=== PATIENT | female | born 1965 | race Caucasian/White ===

== ENCOUNTER 2023-10-04 01:44 | Day surgery (SDC) | payer OTHER, SELFPAY ==
[2023-09-24 10:06] VITALS: BMI 20.1
--- NOTE | 2023-10-01 09:52 | SUR.PREOP ---
Patient called regarding upcoming procedure. Reviewed preop instructions, appointment times, and procedure prep.
[2023-10-04 08:18] VITALS: BP 112/59; PULSE 68; RESP 16; TEMP 36.1; O2SAT 100
[2023-10-04] MEDS: LACTATED RINGERS 1,000 ML 150 ML IV CONT (08:26)
--- NOTE | 2023-10-04 09:05 | PM.HPGS ---
History of Present Illness History of Present Illness Consent: Risks, benefits, and alternatives have been discussed and questions answered. Patient agrees to proceed with procedure. Chief complaint: neoplasm screening Narrative: Manjula Small is a 58 year old female here for screening colonoscopy, last one 10 years ago Review of Systems Review of Systems: All systems reviewed & are unremarkable except as noted in HPI and below PMFSH Past Medical History Medical History (Updated 07/15/23 @ 13:49 by Manasa Bradley APRN) Anxiety History of vaginal delivery x2 Insomnia Osteopenia Surgical History Surgical History (Updated 07/15/23 @ 13:28 by Kimberly Wilder CMA) H/O LEEP History of dilation and curettage History of placement of ear tubes Status post surgical removal of neoplasm of skin Family History Family History Father Family history of pancreatic cancer Family history of gout Mother Family history of malignant neoplasm of breast in first degree relative Family history of osteoporosis Family history of Alzheimer's disease Grandparent Family history of Alzheimer's disease Social History Social History Smoking status: Never smoker Second hand tobacco smoke exposure: No Alcohol intake: never Substance use: current Other substance usage details: gummies at HS Lack of Transportation: No Lack of Food: Never True Current Housing: I Have Housing Concerned About Future Housing: No Difficulty Paying Gas/Electric Bills: No Difficulty Paying for Meds: No Currently Unemployed: No Education: Master's Degree or Higher Difficulty w/ Childcare or Family Care: No Living arrangements: with family Occupation/Education: occupation 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 (if verbalized by the patient): Female Spiritual care concerns: No Agree to blood products: Yes Meds Home Medications and Allergies Home Medications Medication Instructions Recorded Confirmed Type cholecalciferol (vitamin D3) 100 4,000 unit PO DAILY 07/13/19 09/24/23 History mcg (4,000 unit) capsule calcium carbonate 600 mg calcium 600 mg PO DAILY 07/18/20 09/24/23 History (1,500 mg) tablet (Calcium) vitamin B complex (B 1 tablet PO DAILY 01/14/21 03/22/24 History Complex-Vitamin B12 tablet) buspirone 5 mg tablet See Rx Instructions PO QHS PRN 11/12/22 09/24/23 Rx anxiety or sleep #60 tabs zolpidem 5 mg tablet (Ambien) 5 mg PO QHS PRN sleep #30 tabs 02/18/23 09/24/23 Rx Allergies Allergy/AdvReac Type Severity Reaction Status Date / Time shellfish derived Allergy Unknown Unknown Verified 10/04/23 08:17 Vital Signs Vital Signs - 24 hr 10/04/23 08:18 Temperature 96.9 F L Pulse Rate 68 Respiratory Rate 16 Blood Pressure 112/59 L Pulse Oximetry 100 Oxygen Delivery Room Air Exam Const: General: comfortable and no acute distress HENMT: Face/Nose/Sinus: Normal nares present Eyes: General: appearance normal, both eyes and all related structures Neck: Neck: no JVD Resp: Auscultation: clear to auscultation bilaterally Cardio: Rate: regular rate Rhythm: regular rhythm GI: Inspection: non-distended GI Palp: Yes Soft to palpation Skin: General skin exam: normal color Neuro: General: gait normal Speech: normal speech Extrem: General: normal to inspection Psych: Mental Status: mental status grossly normal Assessment and Plan Assessment and plan (1) Colon cancer screening: Code(s): Z12.11 - Encounter for screening for malignant neoplasm of colon Status: Acute Assessment and Plan: colonoscopy
[2023-10-04 09:25] VITALS: BP 89/53; PULSE 72; RESP 15; O2SAT 100
--- NOTE | 2023-10-04 09:27 | WPDANESEPPF ---
Anes - Initial Pre Proc Eval Procedure: Operation Date: 10/04/23 09:30 Proposed Procedures p Screening Colonoscopy - Jared Rodriguez MD Date/Time: 10/04/23 09:27 Surgeon: Jared Rodriguez MD Pre Op Diagnosis: neoplasm screening Patient Data Age: 58 Gender: F Height: 1.65 m Weight: 52 kg Last Vital Signs Temp 96.9 F L 10/04/23 08:18 Pulse 68 10/04/23 08:18 Resp 16 10/04/23 08:18 BP 112/59 L 10/04/23 08:18 Pulse Ox 100 10/04/23 08:18 O2 Del Method Room Air 10/04/23 08:18 Allergies Allergy/AdvReac Type Severity Reaction Status Date / Time shellfish derived Allergy Unknown Unknown Verified 10/04/23 08:17 Home Medications Medication Instructions Recorded Confirmed Type cholecalciferol (vitamin D3) 100 4,000 unit PO DAILY 07/13/19 09/24/23 History mcg (4,000 unit) capsule calcium carbonate 600 mg calcium 600 mg PO DAILY 07/18/20 09/24/23 History (1,500 mg) tablet (Calcium) vitamin B complex (B 1 tablet PO DAILY 07/18/20 09/24/23 History Complex-Vitamin B12 tablet) buspirone 5 mg tablet See Rx Instructions PO QHS PRN 11/12/22 09/24/23 Rx anxiety or sleep #60 tabs zolpidem 5 mg tablet (Ambien) 5 mg PO QHS PRN sleep #30 tabs 02/18/23 09/24/23 Rx Patient hx anesthesia problems: none Family hx anesthesia problems: none Results Review: All pre-operative results and documents have been reviewed as part of the pre-operative evaluation. [facility] Past Medical History Medical History (Updated 07/15/23 @ 13:49 by Manasa Bradley APRN) Anxiety History of vaginal delivery x2 Insomnia Osteopenia Surgical History Surgical History (Updated 07/15/23 @ 13:28 by Kimberly Wilder CMA) H/O LEEP History of dilation and curettage History of placement of ear tubes Status post surgical removal of neoplasm of skin Family History Family History Father Family history of pancreatic cancer Family history of gout Mother Family history of malignant neoplasm of breast in first degree relative Family history of osteoporosis Family history of Alzheimer's disease Grandparent Family history of Alzheimer's disease Social History Social History Smoking status: Never smoker Second hand tobacco smoke exposure: No Alcohol intake: never Substance use: current Other substance usage details: gummies at HS Lack of Transportation: No Lack of Food: Never True Current Housing: I Have Housing Concerned About Future Housing: No Difficulty Paying Gas/Electric Bills: No Difficulty Paying for Meds: No Currently Unemployed: No Education: Master's Degree or Higher Difficulty w/ Childcare or Family Care: No Living arrangements: with family Occupation/Education: occupation 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 Informed Consent: The patient's anesthetic plan and its attendant risks and benefits were discussed with the patient/family/POA. Questions were solicited and answers provided to the satisfaction of the patient/family/POA.
[2023-10-04 09:35] VITALS: BP 98/56; PULSE 64; RESP 18; O2SAT 100
[2023-10-04 09:45] VITALS: BP 108/59; PULSE 62; RESP 23; O2SAT 100
== END 2023-10-04 09:49 | disposition home or self-care (01) ==
PROVIDERS: PCP Nurse Practitioner Family; Visit Provider Internal Medicine Gastroenterology
PROC: 0DJD8ZZ Inspection of Lower Intestinal Tract, Via Natural or Artificial Opening Endoscopic (ICD-10-PCS; CPT 45378; principal; 2023-10-04 09:30)
DX: Z12.11 Encounter for screening for malignant neoplasm of colon (principal); K64.8 Other hemorrhoids; F41.9 Anxiety disorder, unspecified; G47.00 Insomnia, unspecified; M85.88 Other specified disorders of bone density and structure, other site; Z98.890 Other specified postprocedural states; Z85.828 Personal history of other malignant neoplasm of skin; Z80.0 Family history of malignant neoplasm of digestive organs; Z80.3 Family history of malignant neoplasm of breast
CPT/HCPCS: 45378; J2001; J2371; J2704; J7120

== ENCOUNTER 2024-10-17 08:21 | Outpatient (CLI) | payer OTHER, SELFPAY ==
--- NOTE | ~2024-10-17 | CT_ITS ---
CT of the Abdomen and Pelvis: Indication: Abdominal pain Technique: 2.5 mm axial scans were obtained through the abdomen and pelvis following intravenous adm inistration of 100 cc of Omnipaque 350. Dose reduction technique was used on this scan by utilizing a utomated exposure control and iterative reconstruction technique. The dose-length product (DLP) was 1 98.98 mGy-cm. Findings: Scans through the lung bases are unremarkable. Small scattered hepatic cysts are present. The spleen, pancreas, gallbladder, adrenals and kidneys ar e within normal limits. No evidence of aortic aneurysm. No lymphadenopathy. No bowel obstruction or bowel wall thickening. There is no evidence to suggest acute appendicitis. Images through the pelvis were performed. Urinary bladder unremarkable. No pelvic mass seen. No ascit es. Impression: No significant abnormalities seen. Reviewed, dictated and finalized at [facility]. Impression: No significant abnormalities seen.
--- OUTSIDE RECORDS SUMMARY | 2024-10-17 08:34 | XMS_ITS | Referral Summary ---
Author Organization [facility] Address [address] [place] [address] Care Team Providers Care Multiple Drum Sander Name Role Phone BrissaYolyMily NP Primary Care Provider [phone] Allergies Active Allergy Reactions Criticality Noted Date Comments Shellfish Containing Products Unknown 2010 Medications zolpidem (AMBIEN) 5 mg tablet 10/09/2019 Active UNABLE TO FIND Take by mouth as needed THC sleeping caps 10 mg Active ibuprofen (ibuprofen) 200 mg tab/cap Take by mouth every 6 (six) hours as needed for pain Active acetaminophen (TYLENOL) 325 mg tablet Take 650 mg by mouth every 6 (six) hours as needed for pain Active cyanocobalamin (Vitamin B-12) 100 mcg tabletIndicatio ns:Prevention of Vitamin B12 Deficiency Take 1,000 mcg by mouth daily Active cholecalciferol (VITAMIN D-3) 5,000 unit capsule Take 5,000 Units by mouth daily Active calcium carbonate (OS-DOMINIQUE) 650 mg calcium (1,625 mg) tablet Take 1 tablet by mouth daily Active Active Problems No known active problems Social History Tobacco Use Types Packs/Day Years Used Date Smoking Tobacco: Never Smokeless Tobacco: Never Alcohol Use Standard Drinks/Week Comments Not Currently 0 (1 standard drink = 0.6 oz pur e alcohol) Comments Unknown Sex and Gender Information Value Date Recorded Sex Assigned at Not on file 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 Gender Identity Not on file Sexual Orientation Straight 12/16/2019 11 :32 AM CDT Last Filed Vital Signs Vital Sign Reading Time Taken Comments Blood Pressure 153/75 04/30/2021 11:20 AM CDT Pulse 80 04/30/2021 11:20 AM CDT Temperature 36.6 C (97.9 F) 04/25/2020 10:38 AM CDT Respiratory Rate - - Oxygen Saturation 98% 12/06/2019 12:59 PM CDT Inhaled Oxygen Concentration - - Weight 55 kg (121 lb 3.2 oz) 04/30/2021 11:20 AM CDT Height 165.1 cm (5' 5 ) 04/30/2021 11:20 AM CDT Body Mass Index 20.17 04/30/2021 11:20 AM CDT Plan of Treatment Not on file Procedures Procedure Name Priority Date/Time Associated Diagnosis Comments SCREENING MAMMOGRAM BILATERAL W ANATOLY Schedule Routine, Read Routine (OP Routine) 11/10/2023 11:06 AM CDT Screening mammogram, encounter for from Last 3 Months or Most Recently Relevant to Health Maintenance Results * Screening Mammogram Bilateral W Anatoly (11/10/2023 11:06 AM CDT) Anatomical Region Laterality Modality Breast Bilateral Mammography Narrative 11/11/2023 1:51 PM CDT Mammogram Technique: Bilateral Digital Breast Tomosynthesis, Bilateral C-view 2D Screening mammogram. Views obtained: bilateral craniocaudal and bilateral mediolateral oblique. Computer Aided Detection was performed. Mammogram Findings: The present examination has been compared to prior imaging studies performed at [facility] on 09/30/2020, 10/09/2021 and 11/03/2022. The breasts are extremely dense, which lowers the sensitivity of mammography. There is no suspicious abnormality in either breast. Impression: There is no mammographic evidence of malignancy. Annual screening mammography is recommended. Consider breast MRI for supplemental screening given the patient's extremely dense breast tissue. OVERALL FINAL ASSESSMENT: BI-RADS CATEGORY 1: Negative. Procedure Note Fani Malhotra MD - 11/11/2023 Mammogram Technique: Bilateral Digital Breast Tomosynthesis, Bilateral C-view 2D Screening mammogram. Views obtained: bilateral craniocaudal and bilateral mediolateral oblique. Computer Aided Detection was performed. Mammogram Findings: The present examination has been compared to prior imaging studies performed at [facility] on 09/30/2020, 10/09/2021 and 11/03/2022. The breasts are extremely dense, which lowers the sensitivity of mammography. There is no suspicious abnormality in either breast. Impression: There is no mammographic evidence of malignancy. Annual screening mammography is recommended. Consider breast MRI for supplemental screening given the patient's extremely dense breasttissue. OVERALL FINAL ASSESSMENT: BI-RADS CATEGORY 1: Negative. us Self Screening Mammogram IMG MAMMO PROCEDURES Fi nal Result from Last 3 Months or Most Recently Relevant to Health Maintenance [facility] HEALTHLINK OPEN ACCESS [facility] [id number] Member Subscriber Plan / Payer (Ef fective 2021-Present) Name:Manjula Cortes Member ID:[id number] Relation to Subscriber:Self Name:Manjula Cortes Subscriber ID:[id number] Payer ID:[id number] Group ID:[id number] Type:HEALTHLINK HMO/PPO Address: [address] [place] [id number] Care Teams Multiple Drum Sander Relationship Specialty Start Date End Date Yoly Brumfield NP PCP - General 10/09/21
--- OUTSIDE RECORDS SUMMARY | 2024-10-17 08:34 | XMS_ITS | Clinical Summary ---
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
--- OUTSIDE RECORDS SUMMARY | 2024-10-17 08:34 | XMS_ITS | Clinical Summary ---
Author Organization [facility] Address [address] [place] [address] Care Team Providers Care Physicians Assistant Name Role Phone Brissa Mily NP Primary Care Provider [phone] Allergies Active Allergy Reactions Criticality Noted Date [...] Active Active Problems No known active problems Surgical History Surgery Date Site/Laterality Comments BREAST BIOPSY 08/23/2019 Left TYMPANOSTOMY TUBE PLACEMENT Medical History Medical History Date Comments Hx Other Medical 1996 Leap procedure Hx Other Medical ear tube surger y Personal history of other ma lignant neoplasm of skin History of nonmelanoma skin cancer - (Added by TW Conv) Family History Medical History Relation Name Comments Cancer Other Gout Other Relation Name Status Comments Other Social History Tobacco Use Types Packs/Day Years Used Date Smoking Tobacco: Never Smokeless Tobacco: Never Alcohol Use Standard Drinks/Week Comments Not Currently 0 (1 standard drink = 0.6 oz pur e alcohol) Comments Unknown Sex and Gender Information Value Date Recorded Sex Assigned at Not on file 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 Gender Identity Not on file Sexual Orientation Straight 12/16/2019 11 :32 AM CDT Obstetrics History Last Filed Vital Signs Vital Sign Reading [...] 04/30/2021 11:20 AM CDT Plan of Treatment Health Maintenance Due Date Last Done Comments Cervical Cancer Screening 1963 Colon Cancer Screening-Colonoscopy 1963 Depression Screening 1963 Hepatitis C Screening 1963 DTaP/Tdap/Td Vaccine (1 - Tdap) 1974 Hepatitis B Screening 1981 Regular Well Visit/Exam 18-64 1981 Zoster Vaccine (2 of 2) 05/28/2018 04/02/2018 Influenza Vaccine (#1) 2024 04/04/2018 Breast Cancer Screening-Mammogram 11/09/2024 11/10/2023, 11/03/2022, 10/09/2021, Additional history exists Pneumococcal vaccine <65 Aged Out No longer eligible based on patient's age to complete this topic Procedures Procedure Name Priority Date/Time Associated Diagnosis [...] compared to prior imaging studies performed at [facility] on 09/30/2020, 10/09/2021 and 11/03/2022. The breasts [...] compared to prior imaging studies performed at [facility] on 09/30/2020, 10/09/2021 and 11/03/2022. The breasts [...] Most Recently Relevant to Health Maintenance Insurance [employer] [facility] HEALTHLINK OPEN ACCESS [facility] [id number] Care Teams Physicians Assistant Relationship Specialty Start Date End Date Yoly Brumfield NP PCP - General 10/09/21
--- OUTSIDE RECORDS SUMMARY | 2024-10-17 08:34 | XMS_ITS | Encounter Summary ---
Author Organization [facility] Address [address] [place] [address] Care Team Providers Care Lieutenant Ballistics Name Role Phone Unavailable Primary Care Provider Unavailabl e Encounter Details Date Type Department Care Team (Late st Contact Info) Description 12/06/2001 Outpatient Historical Division of Neurology 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
--- OUTSIDE RECORDS SUMMARY | 2024-10-17 08:34 | XMS_ITS | Clinical Summary ---
Author Organization [facility] Address [address] [place] [address] Care Team Providers Care Editor Newspaper Name Role Phone Yoly Brumfield APRN-BLANCA Primary Care Provider Dayton Draper MD Unavailable [phone] Source Comments [facility],non-owned Affiliates and Associated Physician Practices is amultiple site organization consisting of ambulatory clinics and hospital sitesin [place], [place], [place] and [place]. This disclosure is being madepursuant to the Care Everywhere program and may not contain all information available regarding this patient. Last updated 18.[facility] [employer] Allergies No known active allergies Social History Tobacco Use Types Packs/Day Years Used Date Smoking Tobacco: Never Assessed Comments Unknown Sex and Gender Information Value Date Recorded Sex Assigned at Not on file Legal Sex Female 1:38 PM CDT Gender Identity Not on file Sexual Orientation Not on file Last Filed Vital Signs Vital Sign Reading Time Taken Comments Blood Pressure - - Pulse - - Temperature - - Respiratory Rate - - Oxygen Saturation - - Inhaled Oxygen Concentration - - Weight 54.4 kg (120 lb) 12/15/2021 10:40 AM CDT Height 165.1 cm (5' 5 ) 12/15/2021 10:40 AM CDT Body Mass Index 19.97 12/15/2021 10:40 AM CDT Plan of Treatment Health Maintenance Due Date Last Done Comments COLOGUARD (AGES 45-75) - COL ON CA SCREENING 1963 COLON MONITORING 1963 COLONOSCOPY - COLON CA SCREENING 1963 CT COLONOGRAPHY - COLON CA SCREENING 1963 Colorectal Cancer Screening 1963 FIT - COLON CA SCREENING 1963 FLEX SIG - COLON CA SCREENING 1963 LIPID TESTING 1963 PAP SMEAR 1963 HIV SCREENING 1978 HEPATITIS C SCREENING 04/04/1981 DTAP/TDAP/TD VACCINES (1 - Tdap) 1982 PNEUMOCOCCAL VACCINE 50+ (1 of 1 - PCV) 2013 ZOSTER VACCINE (1 of 2) 2013 MAMMOGRAM 10/10/2023 10/09/2021 COVID-19 VACCINE (1 - 2023-2 5 season) 2024 DEPRESSION SCREENING 07/05/2024 INFLUENZA VACCINE (Season Ended) 2025 Respiratory Syncytial Virus (RSV) Vaccine Pt: or over 60 yrs (1 - 1-dose 75+ series) 2038 HEPATITIS B VACCINE Aged Out No longe r eligible based on patient's age to complete this topic HIB VACCINE Aged Out No longer eligi ble based on patient's age to complete this topic HPV VACCINE Aged Out No longer eligi ble based on patient's age to complete this topic MENINGOCOCCAL (Group B) VACC INE SHARED DECISION-MAKING Aged Out No longer eligibl e based on patient's age to complete this topic MENINGOCOCCAL GROUPS A/C/Y/W VACCINE Aged Out No longer eligible b ased on patient's age to complete this topic PNEUMOCOCCAL VACCINE Aged Out No long er eligible based on patient's age to complete this topic [facility] Care Teams Editor Newspaper Relationship Specialty Start Date End Date Yoly Brumfield, FLOW MATCH SOFA CUTTER-BILINGUAL ADMINISTRATIVE ASSISTANT [address] [place] [address] PCP - General Nurse Practitioner Family 12/15/21 [place] [address] [address] Orthopedic Surgery 12/15/21
[2024-10-17 08:45] LABS: Estimated Glomerular Filt Rate > 60
== END 2024-10-17 08:22 | disposition home or self-care (01) ==
PROVIDERS: PCP Family Medicine; Visit Provider Nurse Practitioner Family
DX: K21.9 Gastro-esophageal reflux disease without esophagitis (principal)
CPT/HCPCS: 74177; Q9967

== ENCOUNTER 2024-12-14 04:15 | Day surgery (SDC) | payer OTHER, SELFPAY ==
[2024-12-05 10:40] VITALS: BMI 19.4
--- OUTSIDE RECORDS SUMMARY | 2024-12-14 04:19 | XMS_ITS | Referral Summary ---
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 Gender Identity Not on file Sexual Orientation [...] 11:20 AM CDT Height 165.1 cm (5' 5) 04/30/2021 11:20 AM CDT Body Mass Index 20.17 04/30/2021 11:20 AM CDT Plan of Treatment Not on file Procedures Procedure Name Priority Date/Time Associated Diagnosis Comments SCREENING MAMMOGRAM BILATERAL W ANATOLY Schedule Routine, Read Routine (OP Routine) 11/16/2024 1:04 PM CDT Screening mammogram, encounter for from Last 3 Months Results * Screening Mammogram Bilateral W Anatoly (11/16/2024 1:04 PM CDT) Anatomical Region Laterality Modality Breast Bilateral Mammography Narrative 11/17/2024 2:12 PM CDT Mammogram Technique: Bilateral Digital Breast Tomosynthesis, Bilateral C-view 2D Screening mammogram. Views obtained: bilateral craniocaudal and bilateral mediolateral oblique. Computer Aided Detection was performed. Mammogram Findings: The present examination has been compared to prior imaging studies performed at [facility] on 10/09/2021, 11/03/2022 and 11/10/2023. The breasts are extremely dense, which lowers the sensitivity of mammography. There is no suspicious abnormality in either breast. Impression: There is no mammographic evidence of malignancy. Annual screening mammography is recommended. Consider breast MRI for supplemental screening given the patient's extremely dense breast tissue. OVERALL FINAL ASSESSMENT: BI-RADS CATEGORY 1: Negative. Procedure Note Megan Marie MD - 11/17/2024 Mammogram Technique: Bilateral Digital Breast Tomosynthesis, Bilateral C-view 2D Screening mammogram. Views obtained: bilateral craniocaudal and bilateral mediolateral oblique. Computer Aided Detection was performed. Mammogram Findings: The present examination has been compared to prior imaging studies performed at [facility] on 10/09/2021, 11/03/2022 and 11/10/2023. The breasts are extremely dense, which lowers [...] Fi nal Result from Last 3 Months Insurance [facility] HMO/PPO Address: [facility] [id number] [place] [address] [facility] HEALTHLINK OPEN ACCESS [facility] Care Teams School Transportation Supervisor Relationship Specialty Start Date End Date Yoly Brumfield NP PCP - General 10/09/21
--- OUTSIDE RECORDS SUMMARY | 2024-12-14 04:19 | XMS_ITS | Encounter Summary ---
[facility] Organization [facility] Address [address] [place] [address] Care Team Providers Care Rn Nursery Name Role Phone Unavailable Primary Care Provider Unavailabl e Encounter Details Date Type Department Care Team (Late st Contact Info) Description 12/06/2001 Outpatient Historical Division of Neurology 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
--- OUTSIDE RECORDS SUMMARY | 2024-12-14 04:19 | XMS_ITS | Clinical Summary ---
Author Organization [facility] Address [address] [place] [address] Care Team Providers Care Superintendent Horticulture Name Role Phone Yoly Brumfield APRN-BLANCA Primary Care Provider Dayton Draper MD Unavailable [phone] Source Comments [facility],non-owned Affiliates and Associated Physician Practices is amultiple site organization consisting of ambulatory clinics and hospital sitesin [place], [place], [place] and [place]. This disclosure is being madepursuant to the Care Everywhere program and may not contain all information available regarding this patient. Last updated 18.[facility] [place] Allergies No known active allergies Social History [...] 10:40 AM CDT Height 165.1 cm (5' 5) 12/15/2021 10:40 AM CDT Body Mass Index [...] patient's age to complete this topic [facility] Care Teams Superintendent Horticulture Relationship Specialty Start Date End Date Yoly Brumfield, INSULATION AND FLOORING ASSEMBLER-HOT FRAME TENDER [address] [place] [id number] PCP - General Nurse Practitioner Family 12/15/21 [place] [id number] [address] Orthopedic Surgery 12/15/21
--- OUTSIDE RECORDS SUMMARY | 2024-12-14 04:19 | XMS_ITS | Clinical Summary ---
Author Organization [facility] Address [address] [place] [address] Care Team Providers Care Geothermal Hvac Technician Name Role Phone Brissa Mily NP Primary Care Provider [phone] Allergies Active Allergy Reactions Criticality Noted Date [...] Active Active Problems No known active problems Encounters Date Type Department Care Team Description 11/16/2024 12:50 PM CDT - 11/16/2024 11:59 PM CDT Hospital Encounter [facility] [address] [address] Screening mammogram, encounter for Discharge Disposition: Discharge to home or self care from Last 3 Months Surgical History Surgery Date Site/Laterality Comments BREAST BIOPSY 08/23/2019 Left TYMPANOSTOMY TUBE PLACEMENT Medical History Medical History Date Comments Hx Other Medical 1997 Leap procedure Hx Other Medical ear tube [...] on file Legal Sex 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 The breasts [...] to prior imaging studies performed at [facility] on 10/09/2021, 11/03/2022 and 11/10/2023. The breasts [...] nal Result from Last 3 Months Insurance [facility] [employer] OPEN ACCESS [employer] [facility] Care Teams Geothermal Hvac Technician Relationship Specialty Start Date End Date Yoly Brumfield NP PCP - General 10/09/21
--- OUTSIDE RECORDS SUMMARY | 2024-12-14 04:19 | XMS_ITS | Clinical Summary ---
Author Organization [facility] Address [address] [address] Phone Care Team Providers Care Clinical Research Technician Name Role Phone Provider, None Primary Care Provider Unavailabl e Allergies No known active allergies Medications No known medications Family History Medical History Relation Name Comments Cancer Father Relation Name Status Comments Father Mother Alive Social History Tobacco Use Types Packs/Day Years Used Date Smoking Tobacco: Never Alcohol Use Standard Drinks/Week Comments Yes 0 (1 standard drink = 0.6 oz pur e alcohol) very rarely Comments No Sex and Gender Information Value Date Recorded Sex Assigned at Not on file Legal Sex Female 11:19 PM CDT Gender Identity Not on file Sexual Orientation Not on file Occupation Industry Job Start Date Job End Date professor Not on file Not on file Not on file Last Filed Vital Signs Vital Sign Reading Time Taken Comments Blood Pressure 104/62 10/05/2016 1:43 PM CDT Pulse 74 10/05/2016 1:43 PM CDT Temperature - - Respiratory Rate 12 10/05/2016 1:43 PM CDT Oxygen Saturation 98% 10/05/2016 1:43 PM CDT Inhaled Oxygen Concentration - - Weight 56.4 kg (124 lb 6.4 oz) 10/05/2016 1:43 P M CDT Height 165.1 cm (5' 5) 10/05/2016 1:43 PM CDT Body Mass Index 20.7 10/05/2016 1:43 PM CDT Plan of Treatment Health Maintenance Due Date Last Done Comments Hepatitis C Virus (HCV) Screening 1965 TdaP Immunization 1965 Cologuard 2008 Colonoscopy 2008 Colorectal Cancer Screening 2008 Immunochemical Fecal Occult Blood 2008 Pneumococcal Immunization (5 0+ years) (1 of 1 - PCV) 2013 Zoster Immunization (1 of 2) 2013 SARS-COV-2 Immunization (1 - 2023- season) 2024 Influenza Immunization (Seas on Ended) 2025 Respiratory Syncytial Virus (RSV) Immunization (Adult) (1 - 1-dose 75+ series) 2038 Hepatitis B Immunization Aged Out No longer eligible based on patient's age to complete this topic Human Papillomavirus (HPV) Immunization Aged Out No longer eligible b ased on patient's age to complete this topic Meningococcal Immunization (ACWY) Aged Out No longer eligible based on patient's age to complete this topic Rotavirus Immunization Aged Out No lo nger eligible based on patient's age to complete this topic [place] [address] [place] [address] O[employer] Care Teams Clinical Research Technician Relationship Specialty Start Date End Date Provider, [facility] PCP - General 10/04/15
--- OUTSIDE RECORDS SUMMARY | 2024-12-14 04:19 | XMS_ITS | Clinical Summary ---
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
[2024-12-14 09:46] VITALS: BP 109/61; PULSE 72; RESP 14; TEMP 36.6; O2SAT 100
[2024-12-14] MEDS: LACTATED RINGERS 1,000 ML 150 ML IV CONT (09:54)
--- NOTE | 2024-12-14 11:11 | WPDANESEPPF ---
Anes - Initial Pre Proc Eval Procedure: Operation Date: 12/14/24 11:00 Proposed Procedures p Esophagogastroduodenoscopy - Jared Rodriguez MD Date/Time: 12/14/24 11:11 Surgeon: Jared Rodriguez MD Pre Op Diagnosis: Generalized abdominal pain, GERD Patient Data Age: 59 Gender: F Height: 1.65 m Weight: 51.7 kg Last Vital Signs Temp 98 F 12/14/24 09:46 Pulse 72 12/14/24 09:46 Resp 14 12/14/24 09:46 BP 109/61 12/14/24 09:46 Pulse Ox 100 12/14/24 09:46 O2 Del Method Room Air 12/14/24 09:46 Allergies Allergy/AdvReac Type Severity Reaction Status Date / Time shellfish derived Allergy Unknown Unknown Verified 12/14/24 09:45 Home Medications ?Medication ?Instructions ?Recorded ?Confirmed ?Type cholecalciferol (vitamin D3) 100 4,000 unit PO DAILY 07/13/19 12/14/24 History mcg (4,000 unit) capsule calcium carbonate (Calcium 600) 600 mg PO DAILY 07/18/20 12/14/24 History vitamin B complex (B 1 tablet PO DAILY 07/18/20 12/14/24 History Complex-Vitamin B12 tablet) zolpidem 5 mg tablet (Ambien) 5 mg PO QHS PRN sleep #30 tabs 03/22/24 12/14/24 Rx omeprazole 40 mg capsule,delayed 40 mg PO DAILY #90 caps 09/07/24 12/05/24 Rx release Patient hx anesthesia problems: none Family hx anesthesia problems: none Results Review: All pre-operative results and documents have been reviewed as part of the pre-operative evaluation. [facility] Past Medical History Medical History Vegan diet Osteopenia Insomnia Anxiety History of vaginal delivery x2 Surgical History Surgical History Status post surgical removal of neoplasm of skin History of placement of ear tubes H/O LEEP History of dilation and curettage Family History Family History Father Family history of pancreatic cancer Family history of gout Mother Family history of malignant neoplasm of breast in first degree relative Family history of osteoporosis Family history of Alzheimer's disease Grandparent Family history of Alzheimer's disease Social History Social History Smoking status: Never smoker Second hand tobacco smoke exposure: No Alcohol intake: never Substance use: current Substance use type: marijuana Other substance usage details: Gummy before bed Lack of Transportation: No Lack of Food: Never True Current Housing: I Have Housing Concerned About Future Housing: No Difficulty Paying Gas/Electric Bills: No Difficulty Paying for Meds: No Currently Unemployed: No Education: Master's Degree or Higher Difficulty w/ Childcare or Family Care: No Living arrangements: with family Occupation/Education: occupation 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 Gender identity (if verbalized by the patient): Female Spiritual care concerns: No Agree to blood products: Yes Anes - Eval Final PreProcedure Day of Procedure 12/14/24 11:11 Patient weight: normal Heart: regular rate and rhythm Lungs: clear to auscultation Airway: Mallampati scale class II Neurological: alert and oriented Last oral intake: >/= 8 hours ASA classification: II Emergent: no Anesthetic plan: proceed Anesthesia type and monitoring: general GIVS and standard monitoring Results Review: All pre-operative results and documents have been reviewed as part of the pre-operative evaluation. Informed Consent: The patient's anesthetic plan and its attendant risks and benefits were discussed with the patient/family/POA. Questions were solicited and answers provided to the satisfaction of the patient/family/POA.
--- NOTE | 2024-12-14 11:19 | PM.HPGS ---
History of Present Illness History of Present Illness Consent: Risks, benefits, and alternatives have been discussed and questions answered. Patient agrees to proceed with procedure. Chief complaint: Generalized abdominal pain, GERD Narrative: Manjula Small is a 59 year old female here for first EGD because abdominal pain worse at bedtime for 2-3 hours, omeprazole helped for 1 month but now with pain, this has improved after changed her diet Review of Systems Review of Systems: All systems reviewed & are unremarkable except as noted in HPI and below PMFSH Past Medical History Medical History Vegan diet Osteopenia Insomnia Anxiety History of vaginal delivery x2 Surgical History Surgical History Status post surgical removal of neoplasm of skin History of placement of ear tubes H/O LEEP History of dilation and curettage Family History Family History Father Family history of pancreatic cancer Family history of gout Mother Family history of malignant neoplasm of breast in first degree relative Family history of osteoporosis Family history of Alzheimer's disease Grandparent Family history of Alzheimer's disease Social History Social History Smoking status: Never smoker Second hand tobacco smoke exposure: No Alcohol intake: never Substance use: current Substance use type: marijuana Other substance usage details: Gummy before bed Lack of Transportation: No Lack of Food: Never True Current Housing: I Have Housing Concerned About Future Housing: No Difficulty Paying Gas/Electric Bills: No Difficulty Paying for Meds: No Currently Unemployed: No Education: Master's Degree or Higher Difficulty w/ Childcare or Family Care: No Living arrangements: with family Occupation/Education: occupation 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 (if verbalized by the patient): Female Spiritual care concerns: No Agree to blood products: Yes Meds Home Medications and Allergies Home Medications ?Medication ?Instructions ?Recorded ?Confirmed ?Type cholecalciferol (vitamin D3) 100 4,000 unit PO DAILY 07/13/19 12/14/24 History mcg (4,000 unit) capsule calcium carbonate (Calcium 600) 600 mg PO DAILY 07/18/20 12/14/24 History vitamin B complex (B 1 tablet PO DAILY 07/18/20 12/14/24 History Complex-Vitamin B12 tablet) zolpidem 5 mg tablet (Ambien) 5 mg PO QHS PRN sleep #30 tabs 03/22/24 12/14/24 Rx omeprazole 40 mg capsule,delayed 40 mg PO DAILY #90 caps 09/07/24 12/05/24 Rx release Allergies Allergy/AdvReac Type Severity Reaction Status Date / Time shellfish derived Allergy Unknown Unknown Verified 12/14/24 09:45 Vital Signs Vital Signs - 24 hr 12/14/24 09:46 Temperature 98 F Pulse Rate 72 Respiratory Rate 14 Blood Pressure 109/61 Pulse Oximetry 100 Oxygen Delivery Room Air Exam Const: General: comfortable and no acute distress HENMT: Face/Nose/Sinus: Normal nares present Eyes: General: appearance normal, both eyes and all related structures Neck: Neck: no JVD Resp: Auscultation: clear to auscultation bilaterally Cardio: Rate: regular rate Rhythm: regular rhythm GI: Inspection: non-distended GI Palp: Yes Soft to palpation Skin: General skin exam: normal color Neuro: General: gait normal Speech: normal speech Extrem: General: normal to inspection Psych: Mental Status: mental status grossly normal Assessment and Plan Assessment and plan (1) Generalized abdominal pain: Code(s): R10.84 - Generalized abdominal pain Status: Acute Assessment and Plan: egd with bx
[2024-12-14] MEDS: BENZOCAINE (*SP) 60 ML SPRAY CAN (HURRICAINE) 1 SPRAY MUCOUS MEM (11:21)
--- NOTE | 2024-12-14 11:25 | S_PTH ---
PATIENT: Manjula Small LOC: [facility] Grant#:[id number] AGE/SX: 59/F ROOM: RE12/14/[address]: Jared Rodriguez MD : 1965 BED: DIS: 12/14/2024 SPEC #: [id number] RECD: 12/14/24 13:47 STATUS: MARIXA REQ #: [id number] JUAN: 12/14/24 11:[address]: Jared Rodriguez DEPT: [facility] Surgical RECD BY: Jessica Ulloa ENTERED: 12/14/24 13:48 SP TYPE: Surgical OTHR DR: Jennifer Shannon MD Tissues: A - Gastric Biopsy B - Small Bowel Bx Procedures: Hematoxylin and Eosin Stain Gross and Microscopic Level 4
[2024-12-14 11:30] VITALS: BP 93/37; PULSE 85; RESP 20; O2SAT 97
[2024-12-14 11:40] VITALS: BP 93/58; PULSE 71; RESP 19; O2SAT 100
[2024-12-14 11:50] VITALS: BP 100/57; PULSE 67; RESP 20; O2SAT 100
== END 2024-12-14 12:01 | disposition home or self-care (01) ==
PROVIDERS: PCP Family Medicine; Referring Provider Nurse Practitioner Family; Visit Provider Internal Medicine Gastroenterology
PROC: 0DJ08ZZ Inspection of Upper Intestinal Tract, Via Natural or Artificial Opening Endoscopic (ICD-10-PCS; CPT 43239; principal; 2024-12-14 11:00)
DX: K21.9 Gastro-esophageal reflux disease without esophagitis (principal); G47.00 Insomnia, unspecified; F41.9 Anxiety disorder, unspecified; M85.88 Other specified disorders of bone density and structure, other site; F12.90 Cannabis use, unspecified, uncomplicated; Z98.890 Other specified postprocedural states; Z80.3 Family history of malignant neoplasm of breast; Z80.0 Family history of malignant neoplasm of digestive organs
CPT/HCPCS: 43239; 88305; J2003; J2704; J7120